=== PATIENT | male | born 1935 | race Caucasian/White ===

== ENCOUNTER 2024-10-05 06:11 | Emergency (ER) | payer MEDICARE, OTHER, SELFPAY ==
[2024-10-05] VITALS (48 sets, daily range): BP systolic 143–190; BP diastolic 86–110; PULSE 73–92; RESP 16–20; TEMP 36.5; O2SAT 88–100; BMI 35.0
--- NOTE | 2024-10-05 06:42 | CRLHL7_ITS ---
For Patients: As a result of the Century Cures Act, medical imaging exams and procedure reports are released immediately into your electronic medical record. You may view this report before your referring provider. If you have questions, please contact your health care provider. INDICATION: Left flank pain. History of stones. TECHNIQUE: CT abdomen and pelvis acquired without contrast. COMPARISON: None. FINDINGS: Lower chest: Small bilateral pleural effusions. No pericardial effusion. Mild cardiomegaly. Small hiatal hernia. Extensive postoperative changes about the gastroesophageal junction. Bibasilar atelectasis. Liver: Unenhanced liver is unremarkable. Spleen: Unremarkable. Pancreas: Unremarkable. Gallbladder and bile ducts: Cholecystectomy. No ductal dilatation. Kidneys: A 7 mm stone in the mid left ureter causes mild to moderate hydroureteronephrosis and perinephric stranding. Bilateral nonobstructing nephrolithiasis measures up to 16 mm on the right. Simple right renal cyst measures 6.7 cm. Adrenal glands: Unremarkable. GI tract: There are a few borderline and mildly dilated small bowel loops throughout the abdomen. No evidence of high-grade bowel obstruction. A fat and small bowel containing umbilical hernia shows no focal inflammatory change or associated bowel wall thickening. No free air or free fluid. Lymph nodes: No pathologic lymphadenopathy. Vascular structures: Atherosclerotic disease. No abdominal aortic aneurysm. Pelvic Organs: Unremarkable. Bones: No acute or suspicious osseous abnormality. Chronic compression fracture of the L3 vertebra with indwelling vertebral augmentation material. Bone demineralization. Degenerative changes of the spine and pelvis. IMPRESSION: 1. Left ureteral stone measuring 7 mm causes [id number] hydroureteronephrosis and perinephric stranding. 2. Bilateral nonobstructing nephrolithiasis measuring up to 16 mm in the right kidney. 3. Fat and small bowel containing umbilical hernia. No inflammatory changes associated with this finding. 4. Few borderline and mildly dilated small bowel loops are nonspecific. Attention to this on clinical follow-up recommended as indicated. 5. Small bilateral pleural effusions and bibasilar atelectasis. Dictated by Vernon Bello MD @ 10/05/2024 7:47:18 AM Please note that all CT scans at this facility use dose modulation, iterative reconstruction, and/or weight-based dosing when appropriate to reduce radiation dose to as low as reasonably achievable. Dictated by: Vernon Bello MD @ 10/05/2024 07:47:30 (Electronically Signed)
--- NOTE | 2024-10-05 06:49 | ED_ITS ---
HPI - General Adult General Chief complaint: Flank Pain <Jessie Vickers MD - Last Filed: 10/12/24 01:23> Stated complaint: kidney stones <Jessie Vickers MD - Last Filed: 10/12/24 01:23> Time Seen by Provider: 10/05/24 06:19 <Jessie Vickers MD - Last Filed: 10/12/24 01:23> Source: patient <Jessie Vickers MD - Last Filed: 10/12/24 01:23> Mode of arrival: ambulatory <Jessie Vickers MD - Last Filed: 10/12/24 01:23> Limitations: no limitations <Jessie Vickers MD - Last Filed: 10/12/24 01:23> History of Present Illness HPI narrative: 89-year-old male with significant prior history of multiple prior kidney stones presents to the emergency department for evaluation of left-sided flank area pain for the past 6 hours. Patient presented to a different emergency department in the wait was too long, he left with minimal treatment and no i maging to come to our facility. He is a new patient to us and we do not have any records on him. He reports his past medical history is notable for AFib. He has had a prior gastric bypass and therefore cannot vomit. He denies a history of diabetes, coronary artery disease, bleeding or blood clotting disorder. He does not know all of his medications. I can pull up the records from [facility] ED and C that they did do urinalysis that showed large amount of blood negative nitrites trace leukocyte esterase. He was given 4 mg of oral Zofran. It has been very busy in our ED as well, I am not surprised that there are long waits. He has not had any bloody diarrhea, there is no mid abdominal pain. Appetite have been normal. Symptoms came on suddenly. He reports that his last kidney stone was about 10 years ago. It sounds like he had lithotripsy and stent placement at that time. Reports that he has probably had about 25 stones in his lifetime. Denies a history of chronic kidney disease. It looks like he has recently moved to the [facility] to live with his daughter but we do not have primary care records, medication list or a thorough medical history anywhere through our system or when I can pull up through [facility]. Other than the flank pain, a states that he has been struggling with chronic peripheral edema that makes it difficult to walk and he is incontinent of urine. These are not new problems. It does not sound as though there has been new management. He is uncertain if he takes any diuretics. I do not have any cardiac history on him. He also states that he had a a total knee replacement in July that was uncomplicated. ROS is notable for the edema, retching and flank pain as stated above, otherwise denies times 12 systems for acute concerns. New to our area with limited records. Nonsmoker. Limited past medical history is all that I can obtain as above. <Jessie Vickers MD - Last Filed: 10/12/24 01:23> Related Data Home medications: Home Medications ?Medication ?Instructions ?Recorded ?Confirmed Lactobacillus acidophilus 10 100 mmu cells PO DAILY 10/05/24 10/05/24 billion cell capsule (NewFlora) acetaminophen 500 mg tablet 500 mg PO Q4-6H PRN 10/05/24 10/05/24 (Acetaminophen Extra Strength) aspirin 81 mg tablet,delayed 81 mg PO DAILY 10/05/24 10/05/24 release (Ecotrin Low Strength) buspirone 15 mg tablet 10 mg PO BID 10/05/24 10/05/24 calcium 600 mg (as cap PO 10/05/24 carbonate)-vitamin D3 12.5 mcg (500 unit) capsule cyanocobalamin (vitamin B-12) 1,000 mcg IM .Qmonth 10/05/24 10/05/24 1,000 mcg/mL injection kit docusate sodium 100 mg capsule 100 mg PO BID 10/05/24 10/05/24 (Col-Rite) ferrous sulfate 325 mg (65 mg 325 mg PO DAILY 10/05/24 10/05/24 iron) tablet (FeroSul) fluorouracil 5 % topical cream 1 applic topical BID 10/05/24 10/05/24 (Efudex) hydrocortisone 2.5 % topical cream 1 applic topical TID PRN 10/05/24 10/05/24 methylcellulose (laxative) 500 mg 500 mg PO DAILY 10/05/24 10/05/24 tablet metoprolol succinate 50 mg 50 mg PO DAILY 10/05/24 10/05/24 tablet,extended release 24 hr (Toprol XL) nitroglycerin 0.4 mg sublingual 0.4 mg sublingual Q5-15M PRN 10/05/24 10/05/24 tablet nystatin 100,000 unit/gram topical 1 applic topical BID 10/05/24 10/05/24 cream ondansetron 4 mg disintegrating 4 mg PO Q8-12H PRN 10/05/24 10/05/24 tablet sertraline 100 mg tablet 200 mg PO DAILY 10/05/24 10/05/24 tamsulosin 0.4 mg capsule (Flomax) 0.4 mg PO DAILY 10/05/24 10/05/24 warfarin 1 mg tablet 1 mg PO DAILY 10/05/24 10/05/24 <Jessie Vickers MD - Last Filed: 10/12/24 01:23> Allergies/adverse reactions: Allergies Allergy/AdvReac Type Severity Reaction Status Date / Time codeine Allergy Verified 10/05/24 06:31 morphine Allergy Verified 10/05/24 06:31 <Jessie Vickers MD - Last Filed: 10/12/24 01:23> [facility] Medical History: Medical History Depressive disorder ?F32.A - Depression, unspecified (ICD-10) Esophageal reflux ?K21.9 - Gastro-esophageal reflux disease without esophagitis (ICD-10) Calculus of kidney ?N20.0 - Calculus of kidney (ICD-10) Pulmonary embolism ?I26.99 - Other pulmonary embolism without acute cor pulmonale (ICD-10) Current use of assisted anticoagulation ?Z79.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 anticoagulants (ICD-10) Dysthymic disorder ?F34.1 - Dysthymic disorder (ICD-10) BPH w urinary obs/LUTS ?N40.1 - Benign prostatic hyperplasia with lower urinary tract symptoms (ICD- 10) ?N13.8 - Other obstructive and reflux uropathy (ICD-10) Essential hypertension ?I10 - Essential (primary) hypertension (ICD-10) Obstructive sleep apnea on CPAP ?G47.33 - Obstructive sleep apnea (adult) (pediatric) (ICD-10) Heart failure with preserved ejection fraction ?I50.30 - Unspecified diastolic (congestive) heart failure (ICD-10) History of nonmelanoma skin cancer ?Z85.828 - Personal history of other malignant neoplasm of skin (ICD-10) Moderate tricuspid regurgitation ?I07.1 - Rheumatic tricuspid insufficiency (ICD-10) Colon cancer ?C18.9 - Malignant neoplasm of colon, unspecified (ICD-10) Rheumatoid arthritis ?M06.9 - Rheumatoid arthritis, unspecified (ICD-10) Ventral incisional hernia ?K43.2 - Incisional hernia without obstruction or gangrene (ICD-10) Atrial fibrillation ?I48.91 - Unspecified atrial fibrillation (ICD-10) <Jessie Vickers MD - Last Filed: 10/12/24 01:23> Surgical History: Surgical History H/O colectomy ?Z90.49 - Acquired absence of other specified parts of digestive tract (ICD- 10) History of cholecystectomy ?Z90.49 - Acquired absence of other specified parts of digestive tract (ICD- 10) History of appendectomy ?Z90.49 - Acquired absence of other specified parts of digestive tract (ICD- 10) History of tonsillectomy ?Z90.89 - Acquired absence of other organs (ICD-10) H/O gastric bypass ?Z98.84 - Bariatric surgery status (ICD-10) History of total bilateral knee replacement (TKR) ?Z96.653 - Presence of artificial knee joint, bilateral (ICD-10) <Jessie Vickers MD - Last Filed: 10/12/24 01:23> Exam Const: Vital Signs, click to edit/add: Vital Signs - 24 hr 10/05/24 06:26 10/05/24 08:00 10/05/24 08:02 Temperature 97.7 F Pulse Rate 86 82 Pulse Rate [Left P ulse Oximeter] 88 Respiratory Rate 16 Blood Pressure 151/88 H Blood Pressure [Ri ght Upper Arm] 190/110 H Pulse Oximetry 96 88 93 Oxygen Delivery Me thod Room Air Oxygen Flow Rate Fraction of Inspir ed Oxygen 10/05/24 08:15 10/05/24 08:30 10/05/24 08:32 Temperature Pulse Rate 82 86 86 Pulse Rate [Left P ulse Oximeter] Respiratory Rate Blood Pressure 157/89 H Blood Pressure [Ri ght Upper Arm] Pulse Oximetry 100 99 99 Oxygen Delivery Me thod Oxygen Flow Rate 2 Fraction of Inspir ed Oxygen 10/05/24 08:33 10/05/24 08:45 10/05/24 09:00 Temperature Pulse Rate 83 83 80 Pulse Rate [Left P ulse Oximeter] Respiratory Rate Blood Pressure Blood Pressure [Ri ght Upper Arm] Pulse Oximetry 99 99 99 Oxygen Delivery Me thod Nasal Cannula Nasal Cannula Nasal Cannula Oxygen Flow Rate Fraction of Inspir ed Oxygen 2 2 2 10/05/24 09:02 10/05/24 09:03 10/05/24 09:23 Temperature Pulse Rate 82 81 83 Pulse Rate [Left P ulse Oximeter] Respiratory Rate Blood Pressure 143/89 H Blood Pressure [Ri ght Upper Arm] Pulse Oximetry 99 99 96 Oxygen Delivery Me thod Nasal Cannula Oxygen Flow Rate Fraction of Inspir ed Oxygen 2 10/05/24 09:30 10/05/24 09:32 10/05/24 09:45 Temperature Pulse Rate 82 80 90 Pulse Rate [Left P ulse Oximeter] Respiratory Rate Blood Pressure 164/99 H Blood Pressure [Ri ght Upper Arm] Pulse Oximetry 99 97 96 Oxygen Delivery Me thod Oxygen Flow Rate Fraction of Inspir ed Oxygen 10/05/24 10:00 10/05/24 10:02 10/05/24 10:22 Temperature Pulse Rate 83 81 91 Pulse Rate [Left P ulse Oximeter] Respiratory Rate Blood Pressure 165/86 H Blood Pressure [Ri ght Upper Arm] Pulse Oximetry 94 94 93 Oxygen Delivery Me thod Oxygen Flow Rate Fraction of Inspir ed Oxygen 10/05/24 10:30 10/05/24 10:32 10/05/24 10:45 Temperature Pulse Rate 77 86 76 Pulse Rate [Left P ulse Oximeter] Respiratory Rate 16 Blood Pressure 148/89 H Blood Pressure [Ri ght Upper Arm] Pulse Oximetry 94 93 97 Oxygen Delivery Me thod Oxygen Flow Rate Fraction of Inspir ed Oxygen 10/05/24 11:00 10/05/24 11:02 10/05/24 11:32 Temperature Pulse Rate 83 76 78 Pulse Rate [Left P ulse Oximeter] Respiratory Rate 16 Blood Pressure 154/93 H Blood Pressure [Ri ght Upper Arm] Pulse Oximetry 97 95 97 Oxygen Delivery Me thod Room Air Oxygen Flow Rate Fraction of Inspir ed Oxygen 10/05/24 11:35 10/05/24 11:45 10/05/24 12:00 Temperature Pulse Rate 75 78 82 Pulse Rate [Left P ulse Oximeter] Respiratory Rate Blood Pressure Blood Pressure [Ri ght Upper Arm] Pulse Oximetry 93 93 94 Oxygen Delivery Me thod Oxygen Flow Rate Fraction of Inspir ed Oxygen 10/05/24 12:08 10/05/24 12:23 10/05/24 12:30 Temperature Pulse Rate 76 92 78 Pulse Rate [Left P ulse Oximeter] Respiratory Rate 16 Blood Pressure 154/87 H Blood Pressure [Ri ght Upper Arm] Pulse Oximetry 97 95 94 Oxygen Delivery Me thod Room Air Oxygen Flow Rate Fraction of Inspir ed Oxygen 10/05/24 12:35 10/05/24 12:45 10/05/24 13:00 Temperature Pulse Rate 73 79 76 Pulse Rate [Left P ulse Oximeter] Respiratory Rate Blood Pressure Blood Pressure [Ri ght Upper Arm] Pulse Oximetry 93 95 94 Oxygen Delivery Me thod Oxygen Flow Rate Fraction of Inspir ed Oxygen 10/05/24 13:05 10/05/24 13:15 10/05/24 13:30 Temperature Pulse Rate 80 79 82 Pulse Rate [Left P ulse Oximeter] Respiratory Rate Blood Pressure Blood Pressure [Ri ght Upper Arm] Pulse Oximetry 95 93 94 Oxygen Delivery Me thod Oxygen Flow Rate Fraction of Inspir ed Oxygen 10/05/24 13:33 10/05/24 13:45 10/05/24 14:08 Temperature Pulse Rate 81 83 78 Pulse Rate [Left P ulse Oximeter] Respiratory Rate 16 Blood Pressure 161/91 H Blood Pressure [Ri ght Upper Arm] Pulse Oximetry 94 94 95 Oxygen Delivery Me thod Room Air Oxygen Flow Rate Fraction of Inspir ed Oxygen 10/05/24 14:15 10/05/24 14:30 10/05/24 14:34 Temperature Pulse Rate 80 76 73 Pulse Rate [Left P ulse Oximeter] Respiratory Rate Blood Pressure 174/103 H Blood Pressure [Ri ght Upper Arm] Pulse Oximetry 91 97 96 Oxygen Delivery Me thod Oxygen Flow Rate Fraction of Inspir ed Oxygen 10/05/24 14:45 10/05/24 15:00 10/05/24 15:02 Temperature Pulse Rate 80 80 78 Pulse Rate [Left P ulse Oximeter] Respiratory Rate 20 Blood Pressure 166/94 H Blood Pressure [Ri ght Upper Arm] Pulse Oximetry 96 97 96 Oxygen Delivery Me thod Room Air Oxygen Flow Rate Fraction of Inspir ed Oxygen 10/05/24 15:15 10/05/24 15:30 10/05/24 15:32 Temperature Pulse Rate 83 77 79 Pulse Rate [Left P ulse Oximeter] Respiratory Rate 20 Blood Pressure 164/88 H Blood Pressure [Ri ght Upper Arm] Pulse Oximetry 95 95 96 Oxygen Delivery Me thod Room Air Oxygen Flow Rate Fraction of Inspir ed Oxygen <Jessie Vickers MD - Last Filed: 10/12/24 01:23> Vital Signs, click to edit/add: Vital Signs - 24 hr 10/05/24 06:26 10/05/24 08:00 10/05/24 08:02 Temperature 97.7 F Pulse Rate 86 82 Pulse Rate [Left P ulse Oximeter] 88 Respiratory Rate 16 Blood Pressure 151/88 H Blood Pressure [Ri ght Upper Arm] 190/110 H Pulse Oximetry 96 88 93 Oxygen Delivery Me thod Room Air Oxygen Flow Rate Fraction of Inspir ed Oxygen 10/05/24 08:15 10/05/24 08:30 10/05/24 08:32 Temperature Pulse Rate 82 86 86 Pulse Rate [Left P ulse Oximeter] Respiratory Rate Blood Pressure 157/89 H Blood Pressure [Ri ght Upper Arm] Pulse Oximetry 100 99 99 Oxygen Delivery Me thod Oxygen Flow Rate 2 Fraction of Inspir ed Oxygen 10/05/24 08:33 10/05/24 08:45 10/05/24 09:00 Temperature Pulse Rate 83 83 80 Pulse Rate [Left P ulse Oximeter] Respiratory Rate Blood Pressure Blood Pressure [Ri ght Upper Arm] Pulse Oximetry 99 99 99 Oxygen Delivery Me thod Nasal Cannula Nasal Cannula Nasal Cannula Oxygen Flow Rate Fraction of Inspir ed Oxygen 2 2 2 10/05/24 09:02 10/05/24 09:03 10/05/24 09:23 Temperature Pulse Rate 82 81 83 Pulse Rate [Left P ulse Oximeter] Respiratory Rate Blood Pressure 143/89 H Blood Pressure [Ri ght Upper Arm] Pulse Oximetry 99 99 96 Oxygen Delivery Me thod Nasal Cannula Oxygen Flow Rate Fraction of Inspir ed Oxygen 2 10/05/24 09:30 10/05/24 09:32 10/05/24 09:45 Temperature Pulse Rate 82 80 90 Pulse Rate [Left P ulse Oximeter] Respiratory Rate Blood Pressure 164/99 H Blood Pressure [Ri ght Upper Arm] Pulse Oximetry 99 97 96 Oxygen Delivery Me thod Oxygen Flow Rate Fraction of Inspir ed Oxygen 10/05/24 10:00 10/05/24 10:02 10/05/24 10:22 Temperature Pulse Rate 83 81 91 Pulse Rate [Left P ulse Oximeter] Respiratory Rate Blood Pressure 165/86 H Blood Pressure [Ri ght Upper Arm] Pulse Oximetry 94 94 93 Oxygen Delivery Me thod Oxygen Flow Rate Fraction of Inspir ed Oxygen 10/05/24 10:30 10/05/24 10:32 10/05/24 10:45 Temperature Pulse Rate 77 86 76 Pulse Rate [Left P ulse Oximeter] Respiratory Rate 16 Blood Pressure 148/89 H Blood Pressure [Ri ght Upper Arm] Pulse Oximetry 94 93 97 Oxygen Delivery Me thod Oxygen Flow Rate Fraction of Inspir ed Oxygen 10/05/24 11:00 10/05/24 11:02 10/05/24 11:32 Temperature Pulse Rate 83 76 78 Pulse Rate [Left P ulse Oximeter] Respiratory Rate 16 Blood Pressure 154/93 H Blood Pressure [Ri ght Upper Arm] Pulse Oximetry 97 95 97 Oxygen Delivery Me thod Room Air Oxygen Flow Rate Fraction of Inspir ed Oxygen 10/05/24 11:35 10/05/24 11:45 10/05/24 12:00 Temperature Pulse Rate 75 78 82 Pulse Rate [Left P ulse Oximeter] Respiratory Rate Blood Pressure Blood Pressure [Ri ght Upper Arm] Pulse Oximetry 93 93 94 Oxygen Delivery Me thod Oxygen Flow Rate Fraction of Inspir ed Oxygen 10/05/24 12:08 10/05/24 12:23 10/05/24 12:30 Temperature Pulse Rate 76 92 78 Pulse Rate [Left P ulse Oximeter] Respiratory Rate 16 Blood Pressure 154/87 H Blood Pressure [Ri ght Upper Arm] Pulse Oximetry 97 95 94 Oxygen Delivery Me thod Room Air Oxygen Flow Rate Fraction of Inspir ed Oxygen 10/05/24 12:35 10/05/24 12:45 10/05/24 13:00 Temperature Pulse Rate 73 79 76 Pulse Rate [Left P ulse Oximeter] Respiratory Rate Blood Pressure Blood Pressure [Ri ght Upper Arm] Pulse Oximetry 93 95 94 Oxygen Delivery Me thod Oxygen Flow Rate Fraction of Inspir ed Oxygen 10/05/24 13:05 10/05/24 13:15 10/05/24 13:30 Temperature Pulse Rate 80 79 82 Pulse Rate [Left P ulse Oximeter] Respiratory Rate Blood Pressure Blood Pressure [Ri ght Upper Arm] Pulse Oximetry 95 93 94 Oxygen Delivery Me thod Oxygen Flow Rate Fraction of Inspir ed Oxygen 10/05/24 13:33 10/05/24 13:45 10/05/24 14:08 Temperature Pulse Rate 81 83 78 Pulse Rate [Left P ulse Oximeter] Respiratory Rate 16 Blood Pressure 161/91 H Blood Pressure [Ri ght Upper Arm] Pulse Oximetry 94 94 95 Oxygen Delivery Me thod Room Air Oxygen Flow Rate Fraction of Inspir ed Oxygen 10/05/24 14:15 10/05/24 14:30 10/05/24 14:34 Temperature Pulse Rate 80 76 73 Pulse Rate [Left P ulse Oximeter] Respiratory Rate Blood Pressure 174/103 H Blood Pressure [Ri ght Upper Arm] Pulse Oximetry 91 97 96 Oxygen Delivery Me thod Oxygen Flow Rate Fraction of Inspir ed Oxygen 10/05/24 14:45 10/05/24 15:00 10/05/24 15:02 Temperature Pulse Rate 80 80 78 Pulse Rate [Left P ulse Oximeter] Respiratory Rate 20 Blood Pressure 166/94 H Blood Pressure [Ri ght Upper Arm] Pulse Oximetry 96 97 96 Oxygen Delivery Me thod Room Air Oxygen Flow Rate Fraction of Inspir ed Oxygen 10/05/24 15:15 10/05/24 15:30 10/05/24 15:32 Temperature Pulse Rate 83 77 79 Pulse Rate [Left P ulse Oximeter] Respiratory Rate 20 Blood Pressure 164/88 H Blood Pressure [Ri ght Upper Arm] Pulse Oximetry 95 95 96 Oxygen Delivery Me thod Room Air Oxygen Flow Rate Fraction of Inspir ed Oxygen <Jovanna Ayala MD - Last Filed: 10/05/24 22:26> Documenting provider has reviewed patient's vital signs: yes <Jessie Vickers MD - Last Filed: 10/12/24 01:23> Other: From the and cooperative, limited historian. <MD Jam Robledo Last Filed: 10/12/24 01:23> HENMT: Common normals: normocephalic <MD Jam Robledo Last Filed: 10/12/24 01:23> Head and scalp: normocephalic <MD Jam Robledo Last Filed: 10/12/24 01:23> Other: Bandage on the top of the head, mild pallor. Eyes with normal appearing conjunctiva and sclera oropharynx with acyanotic lips moist membranes. No signs of new facial injury. <MD Jam Robledo Last Filed: 10/12/24 01:23> Eye: Common normals: conjunctivae normal <MD Jam Robledo Last Filed: 10/12/24 01:23> General eye: normal appearance of both eyes <MD Jam Robledo Last Filed: 10/12/24 01:23> Conjunctiva: conjunctiva(e) normal <MD Jam Robledo Last Filed: 10/12/24 01:23> Neck & C-Spine: Common normals: no lymphadenopathy <MD Jam Robledo Last Filed: 10/12/24 01:23> General: normal visual inspection <MD Jam Robledo Last Filed: 10/12/24 01:23> Resp: Common normals: normal respiratory effort <MD Jam Robledo Last Filed: 10/12/24 01:23> Effort & inspection: able to speak in complete sentences <MD Jam Robledo Last Filed: 10/12/24 01:23> Other: Faint crackles at both bases, no wheeze. Normal respiratory effort. <MD aJm Robledo Last Filed: 10/12/24 01:23> Cardio: Other: Rhythm is regular for me but heart sounds are slightly distant. No obvious murmur or gallop. <MD Jam Robledo Last Filed: 10/12/24 01:23> GI: Common normals: Normal to inspection, nondistended, normoactive bowel sounds present <Jessie Vickers MD - Last Filed: 10/12/24 01:23> Other: Minor incisional hernia with no incarceration upper abdomen. Normoactive bowel sounds. No tenderness, rebound or guarding. No obvious mass <Jessie Vickers MD - Last Filed: 10/12/24 01:23> : Common normals: no CVA tenderness <MD Jam Robledo Last Filed: 10/12/24 01:23> Bladder/kidney exam: no CVA tenderness <Jessie Vickers MD - Last Filed: 10/12/24 01:23> Back & Pelvis: Common normals: no CVA tenderness <MD Jam Robledo Last Filed: 10/12/24 01:23> Extremity: Other: 3+ edema on the right, 2+ on the left. Appears chronic. No redness or weeping. <MD Jam Robledo Last Filed: 10/12/24 01:23> Neuro: Common normals: moves all extremities <Jessie Vickers MD - Last Filed: 10/12/24 01:23> Psych: Appearance: grossly normal <Jessie Vickers MD - Last Filed: 10/12/24 01:23> Attitude: calm <Jessie Vickers MD - Last Filed: 10/12/24 01:23> Other: Mild memory impairment but appropriate for medical decision making. Friendly. Talkative but information that he gives a somewhat circumstantial. <Jessie Vickers MD - Last Filed: 10/12/24 01:23> Skin: Common normals: no rashes or lesions noted <MD Jam Robledo Last Filed: 10/12/24 01:23> General skin exam: no rashes or lesions noted <MD Jam Robledo Last Filed: 10/12/24 01:23> Course Course ED Course: 89-year-old male with left flank pain, history of multiple prior kidney stones presenting with what is probably a repeat ureteral stone. Cannot exclude bowel obstruction, colitis, pancreatitis, musculoskeletal injury, radiculopathy, amongst others. Recommended CT of the abdomen and pelvis as he does have signs of hematuria on the previously performed urinalysis at the other ED. Will place peripheral IV. Give 1 dose of Toradol, risks and benefits discussed with his Coumadin, probably not a good candidate for multiple days but certainly 1 dose is reasonable. IV Zofran, typical labs especially focusing and infection, lactate, kidney function, electrolytes. I do suspect that the edema is chronic and will likely not be addressed in this ED visit it sounds as though he has a follow-up appointment on Sunday to address this which is in 2 days. Counseled family that if the kidney stone is under 5 mm, it will likely pass without complication and may not need further Urology referral but if over that size, they will need to arrange follow-up with Urology for definitive treatment. <Jessie Vickers MD - Last Filed: 10/12/24 01:23> Reevaluation(s) Time of Reevaluation #1: 08:57 <Jovanna Ayala MD - Last Filed: 10/05/24 22:26> Reevaluation #1: Have reviewed with patient that he does have a 7 mm stone on the left side. He has had to have interventions for stone removal in the past. Unfortunately this is unlikely to pass on its own at this size. Right now his pain is better, did receive a single dose of Toradol. He is anticoagulated but subtherapeutic. Will have to move to other pain management given the anticoagulation and the kidney function. He has an upcoming appointment at [facility] on Sunday, has not established cares. He recently moved down here with his daughter, had been getting care through [facility] [place]. He is not on a diuretic, has been noting increasing lower extremity edema and his daughter seconds this. He was establishing care this coming week. Did review that there are some bibasilar effusions seen at the base of the lungs on his CT of his abdomen. Will be getting a chest x-ray and I did add on a proBNP. He has profound pitting edema of his lower extremities and I do see history of heart failure with preserved ejection fraction and moderate tricuspid regurgitation in his medical history. He states he has a history of atrial fibrillation but I see pulmonary embolism on his problem list. INR is at 1.73. Patient is currently wearing some oxygen but daughter notes that was when he was falling asleep, uses CPAP at home and was just becoming hypoxic with sleeping here. ProBNP has come back elevated at 5200. Will talk to Urology as well as medical service through [employer]. I do not feel that this patient is medically stable to proceed with outpatient urology follow-up. Potassium is mildly low and is likely to worsen with diuretic therapy. Will update EKG as well. <Jovanna Ayala MD - Last Filed: 10/05/24 22:26> Time of Reevaluation #2: 11:25 <Jovanna Ayala MD - Last Filed: 10/05/24 22:26> Reevaluation #2: Patient has return of pain. Given his age, underlying renal function, need to minimize Toradol use. Will proceed with 25 mcg fentanyl and see how he tolerates this. Will also give him some oral Tylenol for a baseline in pain management. <Jovanna Ayala MD - Last Filed: 10/05/24 22:26> Consultations Consultation #1: Have spoken with placement at [place], patient is on a wait list at [facility] where there are urology services. We will not be able to do a curbside consult at this time, may talk to Urology if approved by the hospitalist. They will page the hospitalist once there is bed availability. We will continue to manage the patient here at this time. He has congestive heart failure, hypokalemia, left 7 mm obstructing kidney stone unlikely to pass on its own. Patient needs medical management and stabilization prior to undergoing any urologic procedures. <Jovanna Ayala MD - Last Filed: 10/05/24 22:26> Time: 09:39 <Jovanna Ayala MD - Last Filed: 10/05/24 22:26> Consultation #2: Spoke with Dr. Ash hospitalkathy through [place] system accepting admissions. He did conference in Urology [facility] at 1 point. Whole conversation was 25 minutes. They do accept patient at [facility], will be a bed delay. They understand the obstructing left kidney stone which will likely be stented, will make patient NPO at this time for at urologists request. Medical issues with the congestive heart failure can be further managed by hospitalist. Did update patient and his family on this, they were happy with this plan and that he has placement with definitive care. He has had Tylenol most recently for pain management and it did help. <Jovanna Ayala MD - Last Filed: 10/05/24 22:26> Time: 12:38 <Jovanna Ayala MD - Last Filed: 10/05/24 22:26> Vital Signs Vital signs: Initial Vital Signs Temperature 97.7 F 10/05/24 06:26 Temperature Source Temporal Artery Scan 10/05/24 06:26 Pulse Rate 88 10/05/24 06:26 Respiratory Rate 16 10/05/24 06:26 Blood Pressure 190/110 H 10/05/24 06:26 Blood Pressure Mean 136 H 10/05/24 06:26 Blood Pressure Position Semi-Fowlers 10/05/24 06:26 Pulse Oximetry 96 10/05/24 06:26 Oxygen Delivery Method Room Air 10/05/24 06:26 Vital Signs Temperature 97.7 F 10/05/24 06:26 Pulse Rate 88 10/05/24 06:26 Respiratory Rate 16 10/05/24 06:26 Blood Pressure 190/110 H 10/05/24 06:26 Pulse Oximetry 96 10/05/24 06:26 Oxygen Delivery Method Room Air 10/05/24 06:26 Temperature 97.7 F 10/05/24 06:26 Pulse Rate 79 10/05/24 15:32 Respiratory Rate 20 10/05/24 15:32 Blood Pressure 164/88 H 10/05/24 15:32 Pulse Oximetry 96 10/05/24 15:32 Oxygen Delivery Method Room Air 10/05/24 15:32 Oxygen Flow Rate 2 10/05/24 08:15 Fraction of Inspired Oxygen 2 10/05/24 09:02 <Jessie Vickers MD - Last Filed: 10/12/24 01:23> Initial Vital Signs Temperature 97.7 F 10/05/24 06:26 Temperature Source Temporal Artery Scan 10/05/24 06:26 Pulse Rate 88 10/05/24 06:26 Respiratory Rate 16 10/05/24 06:26 Blood Pressure 190/110 H 10/05/24 06:26 Blood Pressure Mean 136 H 10/05/24 06:26 Blood Pressure Position Semi-Fowlers 10/05/24 06:26 Pulse Oximetry 96 10/05/24 06:26 Oxygen Delivery Method Room Air 10/05/24 06:26 Vital Signs Temperature 97.7 F 10/05/24 06:26 Pulse Rate 88 10/05/24 06:26 Respiratory Rate 16 10/05/24 06:26 Blood Pressure 190/110 H 10/05/24 06:26 Pulse Oximetry 96 10/05/24 06:26 Oxygen Delivery Method Room Air 10/05/24 06:26 Temperature 97.7 F 10/05/24 06:26 Pulse Rate 79 10/05/24 15:32 Respiratory Rate 20 10/05/24 15:32 Blood Pressure 164/88 H 10/05/24 15:32 Pulse Oximetry 96 10/05/24 15:32 Oxygen Delivery Method Room Air 10/05/24 15:32 Oxygen Flow Rate 2 10/05/24 08:15 Fraction of Inspired Oxygen 2 10/05/24 09:02 <Jovanna Ayala MD - Last Filed: 10/05/24 22:26> Medications Administered Medications: Discontinued Medications Generic Name Dose Route Start Last Admin Trade Name Freq PRN Reason Stop Dose Admin Acetaminophen 1,000 mg 10/05/24 11:25 10/05/24 12:02 Acetaminophen 500 Mg Tablet PO 10/05/24 11:26 1,000 mg ONCE ONE Administration Furosemide 20 mg 10/05/24 09:49 10/05/24 10:43 Furosemide 10 Mg/Ml Inj IVP 10/05/24 09:50 20 mg ONCE ONE Administration Ketorolac Tromethamine 15 mg 10/05/24 06:42 10/05/24 07:11 Ketorolac 15 Mg/Ml Inj IVP 10/05/24 06:43 15 mg ONCE ONE Administration Ondansetron HCl 4 mg 10/05/24 06:42 10/05/24 07:11 Ondansetron 2 Mg/Ml Inj IVP 10/05/24 06:43 4 mg ONCE ONE Administration Potassium Bicarbonate 25 meq 10/05/24 10:00 10/05/24 12:02 Potassium Bicarb 25 Meq Effervescent Tab PO 10/05/24 12:01 25 meq Q2H VIKRAM Administration <Jessie Vickers MD - Last Filed: 10/12/24 01:23> Discontinued Medications Generic Name Dose Route Start Last Admin Trade Name Nahomy PRN Reason Stop Dose Admin Acetaminophen 1,000 mg 10/05/24 11:25 10/05/24 12:02 Acetaminophen 500 Mg Tablet PO 10/05/24 11:26 1,000 mg ONCE ONE Administration Furosemide 20 mg 10/05/24 09:49 10/05/24 10:43 Furosemide 10 Mg/Ml Inj IVP 10/05/24 09:50 20 mg ONCE ONE Administration Ketorolac Tromethamine 15 mg 10/05/24 06:42 10/05/24 07:11 Ketorolac 15 Mg/Ml Inj IVP 10/05/24 06:43 15 mg ONCE ONE Administration Ondansetron HCl 4 mg 10/05/24 06:42 10/05/24 07:11 Ondansetron 2 Mg/Ml Inj IVP 10/05/24 06:43 4 mg ONCE ONE Administration Potassium Bicarbonate 25 meq 10/05/24 10:00 10/05/24 12:02 Potassium Bicarb 25 Meq Effervescent Tab PO 10/05/24 12:01 25 meq Q2H VIKRAM Administration <Jovanna Ayala MD - Last Filed: 10/05/24 22:26> Medical Decision Making Lab Data Labs: Lab Results 10/05/24 10/05/24 10/05/24 Range/Units 07:49 08:34 Unknown WBC 8.66 (4.50-11.00) K/uL RBC 3.12 L (4.30-5.90) m/uL Hgb 10.5 L (13.5-17.5) gm/dL Hct 33.0 L (37.0-53.0) % MCV 106 H (80-100) fL MCH 34 (26-34) pg MCHC 32 (32-36) gm/dL RDW Coeff of Sofie 14.2 (11.5-15.5) % Plt Count 218 (140-440) K/uL Neut % (Auto) 84.6 H (42.0-72.0) % Lymph % (Auto) 9.4 L (20-44) % [place] % (Auto) 4.8 (0.0-11.0) % Eos % (Auto) 0.2 (0.0-7.0) % Baso % (Auto) 0.7 (0.0-3.0) % Neut # (Auto) 7.30 H (1.7-7.0) K/uL Lymph # (Auto) 0.80 L (0.90-2.90) K/uL [place] # (Auto) 0.40 (0.00-0.90) K/UL Eos # (Auto) 0.02 (0.00-0.50) K/uL Baso # (Auto) 0.06 (0.00-0.30) K/uL Abs Immat Gran (auto) 0.03 (0.00-0.30) K/uL Imm/Tot Granulo (auto) 0.3 % Diff Slide Review Acceptable Review (Acceptable) INR 1.73 H (0.91-1.10) Sodium 141 (135-149) mmol/L Potassium 3.2 L (3.6-5.1) mmol/L Chloride 111 (96-114) mmol/L Carbon Dioxide 21 (20-32) mmol/L Anion Gap 9 (7-15) mEq/L BUN 18 (7-30) mg/dL Creatinine 1.1 (0.5-1.5) mg/dL Estimated Creat Clear 44.05 Estimated GFR 64 ml/min Glucose 154 H (60-115) mg/dL Lactate 1.7 (0.5-1.9) mmol/L Calcium 8.5 (8.4-10.6) mg/dL C-Reactive Protein 0.6 (0.5-1.0) mg/dL NT-Pro-B Natriuret Pep 5200 pg/mL Lipase 45 (23-300) U/L Urine Color Light yellow (Yellow) Urine Appearance Slightly Cloudy A (Clear) Urine pH 6.0 (5.0-8.5) Ur Specific [place] 1.025 (1.000-1.030) Urine Protein 1+ A (Negative) Urine Glucose (UA) Negative (Negative) Urine Ketones Negative (Negative) Urine Blood 2+ A (Negative) Urine Nitrite Negative (Negative) Urine Bilirubin Negative (Negative) Urine Urobilinogen 0.2 (0.2-1.0) Ur Leukocyte Esterase Negative (Negative) Urine RBC 25-50 A (0-2) Urine WBC 0-2 (0-5) Ur Squamous Epith Cells Few (None-Few) Urine Bacteria None (None) Lab Acknowledgement Test Added <Jessie Vickers MD - Last Filed: 10/12/24 01:23> Lab Results 10/05/24 10/05/24 10/05/24 Range/Units 07:49 08:34 Unknown WBC 8.66 (4.50-11.00) K/uL RBC 3.12 L (4.30-5.90) m/uL Hgb 10.5 L (13.5-17.5) gm/dL Hct 33.0 L (37.0-53.0) % MCV 106 H (80-100) fL MCH 34 (26-34) pg MCHC 32 (32-36) gm/dL RDW Coeff of Sofie 14.2 (11.5-15.5) % Plt Count 218 (140-440) K/uL Neut % (Auto) 84.6 H (42.0-72.0) % Lymph % (Auto) 9.4 L (20-44) % [place] % (Auto) 4.8 (0.0-11.0) % Eos % (Auto) 0.2 (0.0-7.0) % Baso % (Auto) 0.7 (0.0-3.0) % Neut # (Auto) 7.30 H (1.7-7.0) K/uL Lymph # (Auto) 0.80 L (0.90-2.90) K/uL [place] # (Auto) 0.40 (0.00-0.90) K/UL Eos # (Auto) 0.02 (0.00-0.50) K/uL Baso # (Auto) 0.06 (0.00-0.30) K/uL Abs Immat Gran (auto) 0.03 (0.00-0.30) K/uL Imm/Tot Granulo (auto) 0.3 % Diff Slide Review Acceptable Review (Acceptable) INR 1.73 H (0.91-1.10) Sodium 141 (135-149) mmol/L Potassium 3.2 L (3.6-5.1) mmol/L Chloride 111 (96-114) mmol/L Carbon Dioxide 21 (20-32) mmol/L Anion Gap 9 (7-15) mEq/L BUN 18 (7-30) mg/dL Creatinine 1.1 (0.5-1.5) mg/dL Estimated Creat Clear 44.05 Estimated GFR 64 ml/min Glucose 154 H (60-115) mg/dL Lactate 1.7 (0.5-1.9) mmol/L Calcium 8.5 (8.4-10.6) mg/dL C-Reactive Protein 0.6 (0.5-1.0) mg/dL NT-Pro-B Natriuret Pep 5200 pg/mL Lipase 45 (23-300) U/L Urine Color Light yellow (Yellow) Urine Appearance Slightly Cloudy A (Clear) Urine pH 6.0 (5.0-8.5) Ur Specific [place] 1.025 (1.000-1.030) Urine Protein 1+ A (Negative) Urine Glucose (UA) Negative (Negative) Urine Ketones Negative (Negative) Urine Blood 2+ A (Negative) Urine Nitrite Negative (Negative) Urine Bilirubin Negative (Negative) Urine Urobilinogen 0.2 (0.2-1.0) Ur Leukocyte Esterase Negative (Negative) Urine RBC 25-50 A (0-2) Urine WBC 0-2 (0-5) Ur Squamous Epith Cells Few (None-Few) Urine Bacteria None (None) Lab Acknowledgement Test Added <Jovanna Ayala MD - Last Filed: 10/05/24 22:26> Imaging Data CT scan - abdomen: Attestation: I have reviewed the pertinent imaging results. <Jessie Vickers MD - Last Filed: 10/12/24 01:23> My impression: 8 mm ureteral stone. Postsurgical changes in the abdomen consistent with known history. Large cyst on right kidney, mild hydronephrosis on the left. <Jessie Vickers MD - Last Filed: 10/12/24 01:23> Radiologist's impression: IMPRESSION: 1. Left ureteral stone measuring 7 mm causes [id number] hydroureteronephrosis and perinephric stranding. 2. Bilateral nonobstructing nephrolithiasis measuring up to 16 mm in the right kidney. 3. Fat and small bowel containing umbilical hernia. No inflammatory changes associated with this finding. 4. Few borderline and mildly dilated small bowel loops are nonspecific. Attention to this on clinical follow-up recommended as indicated. 5. Small bilateral pleural effusions and bibasilar atelectasis. Dictated by Vernon Bello MD @ 10/05/2024 7:47:18 AM <Jessie Vickers MD - Last Filed: 10/12/24 01:23> Chest x-ray: Attestation: I have reviewed the pertinent imaging results. <Jovanna Garcia MD - Last Filed: 10/05/24 22:26> My impression: Changes consistent with congestive heart failure on my preliminary review. <Jovanna Ayala MD - Last Filed: 10/05/24 22:26> Radiologist's impression: Patient: DELORES BEAL Facility:?[facility] Patient ID:?[id number] Site Patient ID:?[id number]. Site :?[id number] Study:?XRay-Chest 2 VIEW-10/05/2024 9:24:10 AM Ordering Physician:Davey Nugent Final Report: INDICATION: Edema. Pleural effusion on CT scan. TECHNIQUE: Frontal and lateral chest radiographs, three views. COMPARISON: CT abdomen and pelvis same day. FINDINGS: No pneumothorax. Small bilateral pleural effusions are similar in appearance. Prominence of the bilateral pulmonary interstitium with mild ill-defined basilar opacities. Aortic atherosclerosis. Cardiomegaly. Upper abdomen and osseous structures as imaged show no acute abnormality. IMPRESSION: Interstitial pulmonary edema with bibasilar atelectasis and small pleural effusions. Dictated by Vernon Bello MD @ 10/05/2024 9:46:13 AM (Electronic Signature) <Jovanna Ayala MD - Last Filed: 10/05/24 22:26> ECG Data Attestation: I personally reviewed and interpreted this ECG as follows: (Atrial fibrillation, 85 beats per minute. QT corrected 483 milliseconds. No ischemic change.) <Jovanna Ayala MD - Last Filed: 10/05/24 22:26> Prior ECG tracings: not available for review <Jovanna Ayala MD - Last Filed: 10/05/24 22:26> Discharge Plan Discharge Clinical Impression: Kidney stone on left side, Hypokalemia Congestive heart failure Qualifiers: Heart failure type: unspecified Heart failure chronicity: acute on chronic Qualified Code(s): I50.9 - Heart failure, unspecified <Jessie Vickers MD - Last Filed: 10/12/24 01:23> Patient Disposition: [facility] <Jessie Vickers MD - Last Filed: 10/12/24 01:23> Discharge Location: [facility] <Jessie Vickers MD - Last Filed: 10/12/24 01:23>
--- NOTE | 2024-10-05 06:54 | PC.NURSE ---
Pt to radilology via [facility]
[2024-10-05] MEDS: KETOROLAC 15 MG/ML inj IVP (07:11)
[2024-10-05] MEDS: ONDANSETRON 2 MG/ML inj 4 MG IVP (07:11)
[2024-10-05 07:45] LABS: Appearance Urine Slightly Cloudy (Clear); Bilirubin Urine Negative (Negative); Blood Urine 2+ (Negative); Color Urine Light yellow (Yellow); Glucose Urine Negative (Negative); Ketones Urine Negative (Negative); Leukocyte Esterase Urine Negative (Negative); Nitrite Urine Negative (Negative); Protein Urine 1+ (Negative); Specific Gravity Urine 1.025 (1.000-1.030); Urobilinogen Urine 0.2 (0.2-1.0)
[2024-10-05 07:56] LABS: Lactate* 1.7 mmol/L (0.5-1.9)
[2024-10-05 07:58] LABS: Basophils Absolute Auto 0.06 K/uL (0.00-0.30); Basophils Percent Auto 0.7 % (0.0-3.0); Eosinophils Absolute Auto 0.02 K/uL (0.00-0.50); Eosinophils Percent Auto 0.2 % (0.0-7.0); Hemoglobin* 10.5 gm/dL (13.5-17.5); Immature Granulocytes Abs Auto 0.03 K/uL (0.00-0.30); Immature Granulocytes Pct Auto 0.3 %; Lymphocytes Percent Auto 9.4 % (20-44); Mean Corpuscular HGB Conc 32 gm/dL (32-36); Mean Corpuscular Hemoglobin 34 pg (26-34); Mean Corpuscular Volume 106 fL (80-100); Monocytes Percent Auto 4.8 % (0.0-11.0); Neutrophils Percent Auto 84.6 % (42.0-72.0); Platelet Count* 218 K/uL (140-440); RDW Coefficient of Variation % 14.2 % (11.5-15.5); Red Blood Count 3.12 m/uL (4.30-5.90); White Blood Count* 8.66 K/uL (4.50-11.00)
[2024-10-05 08:01] LABS: Slide Review Reflex Yes
[2024-10-05 08:17] LABS: Chloride* 111 mmol/L (96-114); Potassium* 3.2 mmol/L (3.6-5.1); Sodium* 141 mmol/L (135-149)
[2024-10-05 08:19] LABS: Creatinine* 1.1 mg/dL (0.5-1.5); Est. Creatinine Clearance* 44.05; Estimated Glomerular Filt Rate 64 ml/min; INR 1.73 (0.91-1.10); Lipase* 45 U/L (23-300); Prothrombin Time 21.5 Seconds
[2024-10-05 08:20] LABS: Anion Gap 9 mEq/L (7-15); Blood Urea Nitrogen* 18 mg/dL (7-30); Carbon Dioxide* 21 mmol/L (20-32); Glucose* 154 mg/dL (60-115)
[2024-10-05 08:21] LABS: Calcium* 8.5 mg/dL (8.4-10.6)
[2024-10-05 08:21] LABS: RBC Urine 25-50 (0-2); Squamous Epithelial Cell Urine Few (None-Few); WBC Urine 0-2 (0-5)
[2024-10-05 08:23] LABS: C Reactive Protein* 0.6 mg/dL (0.5-1.0)
[2024-10-05 08:46] LABS: Slide Review Acceptable Review (Acceptable)
--- NOTE | 2024-10-05 08:57 | CRLHL7_ITS ---
For Patients: As a result of the Century Cures Act, medical imaging exams and procedure reports are released immediately into your electronic medical record. You may view this report before your referring provider. If you have questions, please contact your health care provider. INDICATION: Edema. Pleural effusion on CT scan. TECHNIQUE: Frontal and lateral chest radiographs, three views. COMPARISON: CT abdomen and pelvis same day. FINDINGS: No pneumothorax. Small bilateral pleural effusions are similar in appearance. Prominence of the bilateral pulmonary interstitium with mild ill-defined basilar opacities. Aortic atherosclerosis. Cardiomegaly. Upper abdomen and osseous structures as imaged show no acute abnormality. IMPRESSION: Interstitial pulmonary edema with bibasilar atelectasis and small pleural effusions. Dictated by Vernon Bello MD @ 10/05/2024 9:46:13 AM (Electronically Signed)
[2024-10-05 09:00] LABS: NT Pro B Type NatriureticPept* 5200 pg/mL
[2024-10-05] MEDS: FUROSEMIDE 10 MG/ML inj 20 MG IVP (10:43)
[2024-10-05] MEDS: POTASSIUM BICARB 25 MEQ EFFERVESCENT TAB PO ×2 (10:44→12:02)
[2024-10-05] MEDS: ACETAMINOPHEN 500 MG TABLET 1000 MG PO (12:02)
== END 2024-10-05 16:25 | disposition short-term general hospital (02) ==
PROVIDERS: Family Medicine; Emergency Provider Family Medicine
DX: N20.0 Calculus of kidney (principal); I50.9 Heart failure, unspecified
CPT/HCPCS: 36415; 71046; 74176; 80048; 81001; 81003; 83605; 83690; 83880; 85025; 85610; 86140; 93005; 96374; 96375; 99284; 99285; A9270; J1885; J1940; J2405

== ENCOUNTER 2024-10-05 16:22 | Outpatient (CLI) | payer MEDICARE, OTHER, SELFPAY | END 2024-10-05 16:23 | disposition home or self-care (01) | LOC: AMB 10-07 14:59 | PROVIDERS: Visit Provider Family Medicine | DX: N20.0 Calculus of kidney (principal) | CPT/HCPCS: A0425; A0429 ==